=== PATIENT | female | born 1945 | race Caucasian/White ===

== ENCOUNTER 2024-08-27 11:12 | Emergency (ER) | payer OTHER ==
[~2024-08-27] VITALS: Ht 165.1 cm; Wt 56.7 kg
[2024-08-27] MEDS ORDERED: COZAAR25 MG (11:18)
[2024-08-27] MEDS ORDERED: BISOPROLOL-HCT1 EACH PO (11:18)
[2024-08-27] MEDS ORDERED: COZAAR100 MG PO (11:18)
== END 2024-08-27 13:31 | disposition home or self-care (01) ==
LOC: ER 12:04
DX: G89.11 Acute pain due to trauma (principal); M25.562 Pain in left knee; M25.561 Pain in right knee; I10 Essential (primary) hypertension; Z88.6 Allergy status to analgesic agent